=== PATIENT | female | born 1960 | race Two or more races ===

== ENCOUNTER 2021-03-28 08:51 | Emergency (ER) | payer MEDICAID ==
[~2021-03-28] VITALS: Ht 167.6 cm; Wt 65.0 kg
[2021-03-28 09:18] VITALS: BP 132/80
== END 2021-03-28 10:21 | disposition home or self-care (01) ==
LOC: ER 08:51
DX: S80.11XA Contusion of right lower leg, initial encounter (principal); X58.XXXA Exposure to other specified factors, initial encounter; Y93.89 Activity, other specified; Y92.89 Other specified places as the place of occurrence of the external cause; Y99.8 Other external cause status
CPT/HCPCS: 99281; Z7610